=== PATIENT | male | born 1980 | race Caucasian/White ===

== ENCOUNTER 2019-05-20 09:27 | Outpatient (CLI) | payer BC, SELFPAY ==
--- NOTE | 2019-05-20 09:30 | CT_ITS ---
WS: [id number] CT CHEST WITHOUT INTRAVENOUS CONTRAST HISTORY: Restrictive lung disease TECHNIQUE: Contiguous 5 mm axial imaging performed on the thorax. Coronal and sagittal reformats are submitted. All CT scans at [facility] use at least one of these dose optimization techniq ues: automated exposure control; mA and/or kV adjustment per patient size (includes targeted exams wh ere dose is matched to clinical indication); or iterative reconstruction. CONTRAST: None DLP: 913.01 mGycm COMPARISON: Chest radiograph 01/07/2019 Lungs and central airway: Mild volume loss in the RIGHT lung. Dense areas of consolidation with air b ronchograms and pleural thickening at the RIGHT apex. Multiple rounded ill-defined chronic appearing consolidations. There are additional smaller combinations of groundglass and mixed consolidation in t he RIGHT middle lobe and at the RIGHT lung base. Early changes of bronchiectasis in the RIGHT middle lobe and RIGHT lower lobe. Better aeration of the LEFT lung with some mild groundglass attenuation. Pleura: Mild pleural thickening throughout the RIGHT thorax. Calcification noted within the pleural s urface at the RIGHT lung base. Heart and pericardium: Heart is abnormal. Probably congenital. Enlargement of the heart chambers and possible prior pericardial window. There is a large elongated collection with peripheral calcificatio n seen best on the sagittal reformats extending from the superior anterior mediastinum posterior to t he sternum to the upper abdomen. There are additional areas of calcification along the anterior peric ardial surface. No effusion. Mediastinum and divya: There are several small lymph nodes throughout the mediastinum. Vessels: Pulmonary artery is abnormal. RIGHT main pulmonary artery is not identified. Markedly dilate d peripheral pulmonary arteries in the LEFT upper lower lung jorge. Chest wall and lower neck: Prior median sternotomy. Upper abdomen: Negative. Osseous structures: No destructive process. CT/CT chest wo con [id number] IMPRESSION: 1. Consolidated fibrotic changes with volume loss in the RIGHT upper lung with additional groundglass and consolidative changes in the RIGHT middle and RIGHT lower lobe with associated atelectasis. Consider organizing pneumonia. No prio r studies for comparison but these findings appear chronic. 2. RIGHT pleural thickening with RIGHT diaphragmatic calcification. Differenti al includes asbestosis exposure, prior hemothorax or infection or chest tube pl acement. 3. Markedly abnormal appearance of the heart and pulmonary arterial structures . Suspect this is probably congenital abnormality. No prior studies are history available. 4. Enlarged cardiac chambers. 5. Small mediastinal and hilar lymph nodes.
== END 2019-05-20 09:28 | disposition home or self-care (01) ==
PROVIDERS: Family Provider Internal Medicine; PCP Internal Medicine; Visit Provider Internal Medicine Critical Care Medicine
DX: J98.4 Other disorders of lung (principal); I51.7 Cardiomegaly
CPT/HCPCS: 71250

== ENCOUNTER 2019-06-23 09:15 | Outpatient (CLI) | payer BC, SELFPAY ==
--- NOTE | 2019-06-23 09:20 | FL_ITS ---
WS: [id number] Fluoroscopy, sniff test. COMPARISON: None. Chest CT 05/30/2019 reviewed. Fluoroscopy time: 1.0 minutes. There is very slight elevation of the RIGHT diaphragm as compared to the LEFT by approximately 3 cm. During inspiration and expiration the diaphragms moved together. There is at least 2 cm excursion of both diaphragms with inspiration and expiration. During the sniff test both diaphragms move in conjun ction. FL/FL sniff test [id number] IMPRESSION: 1. Slight elevation of the RIGHT hemidiaphragm. 2. Normal sniff test. Both diaphragms move in conjunction with each other. No paralysis of either diaphragm.
== END 2019-06-23 09:16 | disposition home or self-care (01) ==
LOC: RAD 09:18
PROVIDERS: Family Provider Internal Medicine; PCP Internal Medicine; Visit Provider Internal Medicine Critical Care Medicine
DX: J98.4 Other disorders of lung (principal)
CPT/HCPCS: 76000

== ENCOUNTER 2019-07-22 06:58 | Outpatient (CLI) | payer BC, SELFPAY ==
--- NOTE | 2019-07-22 12:13 | PFTS_ITS ---
Date of Study:07/22/19 Date of Dictation: MECHANICS: Forced vital capacity (FVC) is reduced. Forced expiratory volume in one second (FEV1) is reduced. FEV1/FVC is normal. FLOW VOLUME LOOP: Narrow. LUNG VOLUMES: Total lung capacity (TLC) is reduced. Residual volume (RV) is normal but significantly elevated compared to total lung capacity. DIFFUSING CAPACITY FOR CARBON MONOXIDE: Mildly reduced. INTERPRETATION: The pulmonary function tests are consistent with severe restriction. Lung volumes are consistent with moderately severe restriction. Gas exchange (DLCO) is mildly reduced. MTDD
== END 2019-07-22 06:59 | disposition home or self-care (01) ==
LOC: RT 07:06
PROVIDERS: Family Provider Internal Medicine; PCP Internal Medicine; Visit Provider Internal Medicine Critical Care Medicine
DX: J98.4 Other disorders of lung (principal)
CPT/HCPCS: 94010; 94726; 94729

== ENCOUNTER 2021-03-14 14:32 | Outpatient (CLI) | payer OTHER, SELFPAY ==
--- NOTE | 2021-03-14 14:30 | CT_ITS ---
WS: [id number] CT PARANASAL SINUSES HISTORY: Chronic sinusitis TECHNIQUE: Contiguous 2.5 mm axial images obtained through the sinuses. Images are reconstructed in s agittal and coronal planes. All CT scans at [facility] use at least one of these dose optimiz ation techniques: automated exposure control; mA and/or kV adjustment per patient size (includes targ eted exams where dose is matched to clinical indication); or iterative reconstruction. DLP: 966.78 mGy.cm COMPARISON: None available. Frontal sinuses: Very well pneumatized. No air-fluid level. There is mild mucosal thickening along th e posterior lateral aerated sinuses. Sphenoid sinus: Normal. Ethmoid sinuses: Normal. Maxillary sinus: Normal. Ostiomeatal unit: Patent. Deviation of the nasal septum to the LEFT. There is a small cyst measuring 5 mm extending towards the ostiomeatal unit but not causing any obstruction at this time. No bone destructive lesions. CT/CT sinus wo con* [id number] IMPRESSION: 1. No air-fluid levels within the sinuses. 2. Very small amount mucoperiosteal thickening in the posterior lateral fronta l sinuses. 3. Slight deviation of the nasal septum to the LEFT with a bony spur.
== END 2021-03-14 14:33 | disposition home or self-care (01) ==
LOC: RAD 14:43
PROVIDERS: PCP Internal Medicine; Visit Provider Otolaryngology
DX: J32.9 Chronic sinusitis, unspecified (principal); J34.2 Deviated nasal septum
CPT/HCPCS: 70486

== ENCOUNTER 2023-08-21 13:09 | Outpatient (RCR) | payer OTHER, SELFPAY | END 2023-09-11 23:59 | disposition home or self-care (01) | LOC: CR 13:09 | PROVIDERS: PCP Internal Medicine; Referring Provider Internal Medicine Cardiovascular Disease; Visit Provider Internal Medicine Cardiovascular Disease | DX: I50.21 Acute systolic (congestive) heart failure (principal) | CPT/HCPCS: 93798 ==

== ENCOUNTER 2023-09-17 09:43 | Outpatient (RCR) | payer OTHER, SELFPAY | END 2023-10-12 23:59 | disposition home or self-care (01) | LOC: CR 09:43 | PROVIDERS: PCP Internal Medicine; Referring Provider Internal Medicine Cardiovascular Disease; Visit Provider Internal Medicine Cardiovascular Disease | DX: I50.21 Acute systolic (congestive) heart failure (principal) | CPT/HCPCS: 93798 ==

== ENCOUNTER 2023-10-13 10:31 | Outpatient (RCR) | payer OTHER, SELFPAY | END 2023-11-11 23:59 | disposition home or self-care (01) | LOC: CR 10:31 | PROVIDERS: PCP Internal Medicine; Referring Provider Internal Medicine Cardiovascular Disease; Visit Provider Internal Medicine Cardiovascular Disease | DX: I50.9 Heart failure, unspecified (principal) | CPT/HCPCS: 93798 ==

== ENCOUNTER 2023-11-12 08:18 | Outpatient (RCR) | payer OTHER, SELFPAY | END 2023-12-12 23:59 | disposition home or self-care (01) | LOC: CR 08:18 | PROVIDERS: PCP Internal Medicine; Referring Provider Internal Medicine Cardiovascular Disease; Visit Provider Internal Medicine Cardiovascular Disease | DX: I50.9 Heart failure, unspecified (principal) | CPT/HCPCS: 93798 ==

== ENCOUNTER 2023-12-13 10:28 | Outpatient (RCR) | payer OTHER, SELFPAY | END 2024-01-11 23:59 | disposition home or self-care (01) | LOC: CR 10:28 | PROVIDERS: PCP Internal Medicine; Referring Provider Internal Medicine Cardiovascular Disease; Visit Provider Internal Medicine Cardiovascular Disease | DX: I50.9 Heart failure, unspecified (principal) | CPT/HCPCS: 93798 ==